=== PATIENT | male | born 1965 | race African-American/Black ===

== ENCOUNTER 2021-02-13 12:36 | Emergency (ER) | payer OTHER ==
--- NOTE | 2021-02-14 05:22 | PHYS DOC ---
Past History Past Medical History: GI Bleed Adult General Chief Complaint Chief Complaint: HEMATEMESIS/VOMITING BLOOD HPI HPI This note was created in error and meant to be documented for the patient encounter visit dated 02/14/2021 EKG EKG [] Radiology/Procedures Radiology/Procedures [] Heart Score Risk Factors: Risk Factors: DM, Current or recent (<one month) smoker, HTN, HLP, family history of CAD, obesity. Risk Scores: Risk Factors: DM, Current or recent (<one month) smoker, HTN, HLP, family history of CAD, obesity. Dragon Disclaimer Dragon Disclaimer This electronic medical record was generated, in whole or in part, using a voice recognition dictation system. Departure Departure: Impression: Primary Impression: Patient left without being seen Disposition: 07 AMA/KINGS/ISABEL Condition: LEFT WITHOUT BEING SEEN SINGH HUI DO Feb 14, 2021 05:22
[2021-02-14] MEDS ORDERED: PANTOPRAZOLE IV 40 MG VIAL. IVP ONE (05:30)
[2021-02-14] MEDS ORDERED: IV NORMAL SALINE 1,000ML 1,000 ML IV SCH (05:30)
--- NOTE | 2021-02-14 06:04 | RAD ---
AP chest x-ray HISTORY: Upper GI bleeding. FINDINGS: Heart size is normal. Tortuosity aortic arch. No pneumothorax, pulmonary opacities or pleur al effusions. The bones are unremarkable. IMPRESSION: No acute process. Electronically signed by: Tonio Arroyo MD (02/14/2021 6:02 AM) [facility] [place]
[2021-02-14] MEDS ORDERED: ONDA4TAB12 PO (08:58)
[2021-02-14] MEDS ORDERED: CAPS42.514 TP (08:58)
== END 2021-02-13 12:50 | disposition left against medical advice (07) ==
LOC: ER 12:36
DX: K92.0 Hematemesis (principal); Z53.21 Procedure and treatment not carried out due to patient leaving prior to being seen by health care provider
CPT/HCPCS: 36415

== ENCOUNTER 2021-02-14 04:56 | Emergency (ER) | payer OTHER ==
[~2021-02-14] VITALS: Ht 190.5 cm; Wt 110.0 kg
--- NOTE | 2021-02-14 05:38 | PHYS DOC ---
Adult General Chief Complaint Chief Complaint: HEMATEMESIS/VOMITING BLOOD HPI HPI Patient is a 55-year-old male who presents for hemoptysis. States this started 4 days ago without any known inciting event, trauma or recent concerning ingestions. Nothing known makes better, p.o. intake makes nausea worse and causes him to throw up. Patient has no pain at present. States he has been dizzy and off balance at times due to feeling dehydrated and ongoing hemoptysis. Reports having "about 40" episodes in the past 4 days. Patient does admit prior history of upper GI bleeds, was scoped at [facility] approximately 2 to 3 years ago, no aggressive intervention was performed, patient did not require blood transfusion at that time. Patient reports being on 81 mg aspirin daily, drinks alcohol occasionally but denies any recent use, also takes meloxicam daily. No fever, patient feels diaphoretic and dizzy, no vision changes, no chest pain or shortness of breath, no abdominal pain or dysuria, no black tarry stools or other abnormalities with defecation noted. He has no history of liver cirrhosis or varices (SINGH HUI DO) Review of Systems Review of Systems Fourteen body systems of review of systems have been reviewed. See HPI for pertinent positives and negative responses, other norris all other systems are negative, non-pertinent or non-contributory (SINGH HUI DO) Physical Exam Physical Exam Constitutional: Well developed, well nourished, no acute distress, non-toxic appearance. HENT: Normocephalic, atraumatic, bilateral external ears normal, oropharynx dry, no oral exudates, nose normal. Eyes: PERRLA, EOMI, conjunctiva normal, no discharge. Neck: Normal range of motion, no tenderness, supple, no stridor. Cardiovascular: Heart rate regular, sinus rhythm, no murmurs rubs or gallops Lungs & Thorax: Bilateral breath sounds clear to auscultation Abdomen: Bowel sounds normal, soft, no tenderness, no masses, no pulsatile masses. Nonsurgical abdomen, no peritoneal signs. Rectal exam performed, adequate anal sphincter tone without any palpable abnormalities, normal external appearance Skin: Warm, dry, no erythema, no rash. Back: No tenderness, no CVA tenderness. Extremities: No tenderness, no cyanosis, no clubbing, ROM intact, no edema. Neurologic: Alert and oriented X 3, grossly normal motor & sensory function, no focal deficits noted. Psychologic: Affect normal, judgement normal, mood normal. (SINGH HUI DO) Current Patient Data Vital Signs Vital Signs Date Time Temp Pulse Resp B/P (MAP) Pulse Ox O2 Delivery O2 Flow Rate FiO2 02/14/21 05:05 98.4 98 20 150/89 (109) 94 Room Air Vital Signs Date Time Temp Pulse Resp B/P (MAP) Pulse Ox O2 Delivery O2 Flow Rate FiO2 02/14/21 08:51 78 182/110 (134) 98 Room Air 02/14/21 08:21 18 02/14/21 05:05 98.4 (SINGH HUI DO) EKG EKG EKG ordered and interpreted by myself at 0550 hrs. as sinus rhythm at 89 bpm, unremarkable intervals, left axis deviation, no acute ischemic findings, no STEMI, no prior EKG to compare to (SINGH HUI DO) Radiology/Procedures Radiology/Procedures [] (SINGH HUI DO) Radiology/Procedures IMAGING REPORT Signed PATIENT: MILIND THOMPSON RACCOUNT: [id number] : 1965 LOCATION: ER AGE: 55 SEX: M EXAM STATUS: DEP ER ORD. PHYSICIAN: SINGH HUI DO REASON: upper gi bleed PROCEDURE: PORTABLE CHEST 1V AP chest x-ray HISTORY: Upper GI bleeding. FINDINGS: Heart size is normal. Tortuosity aortic arch. No pneumothorax, pulmonary opacities or pleural effusions. The bones are unremarkable. IMPRESSION: No acute process. Electronically signed by: Ewa Arroyo MD (02/14/2021 6:02 AM) [facility] [place] DICTATED AND SIGNED BY: EWA ARROYO MD DATE: 02/14/21 0601 CC: SINGH HUI DO; NON,STAFF; PROVIDER NOT SEE,LWBS ~MTH0 0 Impressions: 3 points-A GBS greater than zero suggests a High Risk GI bleed that is likely to require medical intervention: transfusion, endoscopy, or surgery. A higher GBS also correlated with a higher likelihood of needing intervention (scores ?6 are associated with >50% risk of needing intervention Rockall Score for Upper GI Bleeding, 1 points, Low Risk 3.4% rebleeding risk, 0% mortality. (HERMINIA ALBARRAN DO) Heart Score C/O Chest Pain: No Risk Factors: Risk Factors: DM, Current or recent (<one month) smoker, HTN, HLP, family history of CAD, obesity. Risk Scores: Risk Factors: DM, Current or recent (<one month) smoker, HTN, HLP, family history of CAD, obesity. (SINGH HUI DO) C/O Chest Pain: No (HERMINIA ALBARRAN DO) Course & Med Decision Making Course & Med Decision Making I obtained HPI and initial PE and started ED workup prior to my shift ending. Comprehensive sign out given to oncoming physician. Please defer to Dr. Albarran' notes for more detail on patient visit (SINGH HUI DO) Course & Med Decision Making Concern for "coffee ground emesis" reported dark red small particles in emesis - no events in ed, did not take pictures at home, for 4 days. Reports no history of blood transfusions but did have a platelet transfusion. Former provoked DVT after quadricep tendon repair. Takes aspirin and NSAID daily. Reports his last EGD was 2 to 3 years ago-was not warned against NSAID use. No cirrhosis, alcohol disorder, varices, history of AVM or history of GI bleeding that caused blood transfusions. Patient hemodynamically stable. [facility] to [facility]. Patient is taking aspirin 81 mg daily and meloxicam 15 mg daily. Has history of marijuana abuse, chronic prostatitis with malignant neoplasm of prostate status post radical suprapubic prostatectomy in 2008, GERD with reflux esophagitis, EGD in 2008, DVT in right leg 2011/left leg 2012 s/p Coumadin, left quadricep tendon repair, impulse control disorder, erectile dysfunction and multiple other psych illnesses including mood disorder, anxiety disorder and narcissistic personality disorder. Med rec reviewed. Edy Alfred is pts provider-most recent labs and urinalysis in August 2020. Most recent admission was in March 2019 after pt was transferred from [facility] with concern for GI bleed with melena and dry heaving. Impression was concerning for marijuana hyperemesis or food poisoning. Plan per ed physician was to admit the patient but left AMA after becoming agitated with the nurse. Covid PCR negative 1/26/21.Creatinine 1.14 on 10/31/20. H/H 13.2/41.3 on 10/31/20. I suspect patient symptoms are more likely related to marijuana with cannabinoid hyperemesis syndrome although given GPS score recommends admission with GI consultation. Patient w/[facility] and prefers to "make an appointment," despite risk of life threatening GI bleeding, or disability. The patient has decided to leave our facility against medical advice. I have assessed patient's ability to make informed decision and feel the patient has the capacity to comprehend information regarding the current medical condition and appreciates the impact of the disease or condition and the consequences of various options for treatment, including foregoing treatment. The patient possesses the ability to evaluate all treatment options, comparing the risks and benefits of each option, communicate his or her choice in a consistent manner over time, and is able to make rational choices. I explained to the patient further testing, treatment, and evaluation I would like to perform in the emergency department visit as well as any possible alternatives that can be accomplished in a timely manner. I have outlined the possible risks of foregoing any or all of these interventions and the patient understands and acknowledges that the decision to leave may result in undesirable consequences such as , permanent disability, and/or loss of current lifestyle. Even though leaving AMA is not ideal, I have instructed the patient to follow any discharge instructions given, take any medications prescribed, and resume care as soon as possible with another provider. This conversation was witnessed by another member of the emergency department staff and we clearly communicated the patient is welcome to return anytime to continue care at our facility. Will discharge home with strict ED return precautions were given for recurrent coffee-ground emesis, exertional dyspnea or syncope. Encouraged urgent outpatient follow-up with PMD and urgent GI follow-up within 24 to 48 hours. Life-threatening processes were considered but are low suspicion at this time, given history, physical exam and ED workup. Pt was educated on all prescription medications and adverse effects. All patient's questions were answered and pt was stable at time of discharge. Life/limb-threatening differential includes but is not limited to, acute coronary syndrome/myocardial infarction, Boerhaave's, DKA, gastrointestinal bleeding, intracranial hemorrhage, ischemic bowel, meningitis, sepsis, surgical abdomen (AAA), toxidrome (drug over/overdose/carbon monoxide, etc), testicular torsion, trauma, or infection/sepsis. I spoken with the patient and her caregivers. I explained the patient's condition, diagnoses and treatment plan based on the information available to me at this time. I have answered the patient and her caregiver's questions and addressed any concerns. The patient and her caregivers have a good understanding of patient's diagnosis, condition and treatment plan as can be expected at this point. Vital signs have been stable. Patient's condition is stable and appropriate for discharge from the emergency department. Patient will pursue further outpatient evaluation with primary care physician or other designated or consulting physician as outlined in the discharge instructions. The patient and/or caregivers are agreeable to this plan of care and follow-up instructions have been explained in detail. The patient and/or caregivers have received these instructions in written form and have expressed an understanding of the discharge instructions. The patient and/or caregivers are aware that any significant change of condition or worsening of symptoms should prompt immediate return to this or the closest emergency department or call to 1. (HERMINIA ALBARRAN DO) Dragon Disclaimer Dragon Disclaimer This electronic medical record was generated, in whole or in part, using a voice recognition dictation system. (SINGH HUI DO) Departure Departure: Impression: Primary Impression: Nausea & vomiting Additional Impressions: Cannabinoid hyperemesis syndrome JON (acute kidney injury) Disposition: 07 AMA/ELOPED/LWBS Condition: STABLE Referrals: NON,STAFF (PCP) w/pcp in 24-48 hours FOLLOW UP WITH FAMILY MEDICINE: Family Medicine Address: [address] [place] [id number] Patient Instructions: Acute Kidney Injury, Gastrointestinal Bleeding, Marijuana Abuse-Brief Additional Instructions: FOLLOW UP WITH GASTROENTEROLOGY: within 7 days for evaluation [address], [address], [place] [address] EMERGENCY DEPARTMENT GENERAL DISCHARGE INSTRUCTIONS Thank you for coming to [facility] (ED) today and trusting us with you care. We trust that you had a positivie experience in our Emergency Department. If you wish to speak to the department management, you may call the director at [phone]. YOUR FOLLOW UP INSTRUCTIONS ARE FOLLOWS: 1. Do you have a private Doctor? If you do not have a private doctor, please ask for a resource list of physicians or clinics that may be able to assist you with follow up care. 2. The Emergency Physician has interpreted your x-rays. The X-Ray specialist will also review them. If there is a change in the findings, you will be notified in 48 hours when at all possible. 3. A lab test or culture has been done, your results will be reviewed and you will be notified if you need a change in treatment. ADDITIONAL INSTRUCTIONS AND INFORMATION: 1. Your care today has been supervised by a physician who is specially trained in emergency care. Many problems require more than one evaluation for a complete diagnosis and treatment. We recommend that you schedule your follow up appointment as recommended to ensure complete treatment of you illness or injury. If you are unable to obtain follow up care and continue to have a problem, or if your condition worsens, we recommend that you return to the ED. 2. We are not able to safely determine your condition over the phone nor are we able to give sound medical advice over the phone. For these safety reasons, if you call for medical advice we will ask you to come to the ED for further evaluation. 3. If you have any questions regarding these discharge instructions please call the ED at [phone]. SAFETY INFORMATION: In the interest of safety, wellness, and injury prevention; we encourage you to wear your sealbelt, if you smoke; quite smoking, and we encourage family to use a protective helmet for bicycling and other sporting events that present an increased risk for head injury. IF YOUR SYMPTOMS WORSEN OR NEW SYMPTOMS DEVELOP, OR YOU HAVE CONCERNS ABOUT YOUR CONDITION; OR IF YOUR CONDITION WORSENS WHILE YOU ARE WAITING FOR YOUR FOLLOW UP APPOINT MENT; EITHER CONTACT YOUR PRIMARY CARE DOCTOR, THE PHYSICIAN WHOSE NAME AND NUMBER YOU WERE GIVEN, OR RETURN TO THE ED IMMEDIATELY. Scripts Capsaicin (CAPSAICIN) 42.5 Gm Cream..g. 1 LAVELL TP TID PRN for NAUSEA MDD 3 apps for 10 Days, #42.5 GM 0 Refills apply to abdomen for nausea and vomiting related to marijuana use, warning does cause a burning/tringling sensation Prov: HERMINIA ALBARRAN DO 02/14/21 Ondansetron (ONDANSETRON ODT) 4 Mg Tab.rapdis 4 MG PO Q6HRS for Nausea/Vomiting, #15 TAB Prov: HERMINIA ALBARRAN DO 02/14/21 Problem Qualifiers SINGH HUI DO Feb 14, 2021 05:38 HERMINIA ALBARRAN DO Feb 14, 2021 07:15
[2021-02-14] MEDS ORDERED: IV NORMAL SALINE 1,000ML 1,000 ML IV SCH (05:45)
[2021-02-14] MEDS ORDERED: PANTOPRAZOLE IV 40 MG VIAL. IVP ONE (05:45)
--- NOTE | 2021-02-14 05:54 | EKG ---
[address] [address] Test Date: 2021-02-14 Test Time: 05:46:32 Pat Name: MILIND THOMPSON Department: Room: Gender: M Security Alarm Technician: : 1965 Requested By: SINGH HUI Order Number: [id number] Reading MD: Measurements Intervals Wallace Rate: 89 P: 47 NH: 140 QRS: -6 QRSD: 86 T: 41 QT: 352 QTc: 435 Interpretive Statements SINUS RHYTHM LEFTWARD AXIS OTHERWISE NORMAL ECG RI6.02 No previous ECG available for comparison
[2021-02-14 07:21] LABS: CALCIUM 9.2 mg/dL (8.5-10.1); CREATININE 1.4 mg/dL (0.7-1.3); GFR 63.7; POTASSIUM 3.8 mmol/L (3.5-5.1)
[2021-02-14 07:24] LABS: FECAL OB PT NEGATIVE (NEG); HEMOGLOBIN 14.7 g/dL (13.0-17.5); MEAN CORPUSCULAR HEMOGLOBIN 27 pg (25-35); MEAN CORPUSCULAR HGB CONC 33 g/dL (31-37); MEAN CORPUSCULAR VOLUME 83 fL (79-100); PLATELET COUNT 227 x10^3/uL (140-400); RED BLOOD COUNT 5.45 x10^6/uL (4.30-5.70); RED CELL DISTRIBUTION WIDTH 14.1 % (11.5-14.5); WHITE BLOOD COUNT 9.5 x10^3/uL (4.0-11.0)
[2021-02-14 07:25] LABS: BASO # 0.1 x10^3/uL (0.0-0.2); BASO % 1 % (0-3); EOS % 0 % (0-3); LYMPH # 1.8 x10^3/uL (1.0-4.8); LYMPH % 19 % (24-48); MONO # 0.5 x10^3/uL (0.0-1.1); MONO % 6 % (0-9); NEUT % 74 % (31-73)
[2021-02-14] MEDS ORDERED: IV NORMAL SALINE 1,000ML 1,000 ML IV ONE (07:45)
[2021-02-14 08:05] LABS: BARBITURATES NEG (NEG); BENZODIAZEPINES NEG (NEG); CANNABINOIDS POS (NEG); COCAINE NEG (NEG); METHADONE NEG (NEG); OPIATES NEG (NEG); PHENCYCLIDINE NEG (NEG)
[2021-02-14 08:07] LABS: BACTERIA,URINE 0 /HPF (0-FEW); BILIRUBIN,URINE NEG (NEG); CLARITY,URINE CLEAR; COLOR,URINE AMBER; GLUCOSE,URINE NEG (NEG); NITRITE,URINE NEG (NEG); RBC,URINE OCC /HPF (0-2); SQUAMOUS EPITHELIAL CELL,UR OCC /LPF; WBC,URINE 0 /HPF (0-4)
[2021-02-14 08:09] LABS: AMPHETAMINE/METHAMPHETAMINE NEG (NEG)
[2021-02-14 08:51] VITALS: BP 182/110
[2021-02-14] MEDS ORDERED: ONDA4TAB12 PO (08:58)
[2021-02-14] MEDS ORDERED: CAPS42.514 TP (08:58)
== END 2021-02-14 09:07 | disposition left against medical advice (07) ==
LOC: ER 04:56
DX: R11.2 Nausea with vomiting, unspecified (principal); N17.9 Acute kidney failure, unspecified; R11.10 Vomiting, unspecified; R42 Dizziness and giddiness; E86.0 Dehydration
CPT/HCPCS: 36415; 80048; 80307; 81001; 82274; 83605; 85025; 85379; 85610; 85730; 86850; 86900; 86901; 93005; 96361; 96374; 99285; C9113; J7030